=== PATIENT | female | born 1995 | race Caucasian/White ===

== ENCOUNTER → 2017-11-24 | Outpatient (CLI) | payer OTHER ==
[~2017-11-24] MED LIST: GADOBUTROL 15 MMOL/15 ML (GADAVIST) VIAL IV ONE
--- NOTE | 2017-11-24 11:33 | Diagnostic Imaging Report ---
CLINICAL INDICATION: Patient with family history of polycystic kidney disease. Exam: Ultrasound of both kidneys. Comparison: None. Findings: There are multiple bilateral renal cysts seen. Largest in the right kidney is seen in the midportion and measures 2.4 cm x 1.6 cm x 2.2 cm and the second largest is seen in the upper pole and measures 2.0 cm x 1.7 cm x 2.3 cm. The largest in the left kidney is seen in the inferior pole and measures 2.1 cm x 1.8 cm x 1.9 cm and the second largest measures 1.8 cm x 1.4 cm x 1.5 cm medially. There are multiple other small cysts seen. There is no hydronephrosis. Both kidneys have normal cortical thickness and echogenicity. The right and left kidneys measure 12.1 cm and 13 cm in their craniocaudal dimensions respectively. There is a 4.7 cm cystic structure in the right adnexa region which shows no major Doppler flow. Visualized portion of the bladder is unremarkable. Bilateral ureteral jets are seen. Impression: 1: There is no evidence of acute renal process. 2: Multiple bilateral renal cysts, likely related to patient's family history of polycystic kidney disease. 3: Incidental note of a 4.7 cm cystic structure in right adnexa region. Pelvic ultrasound is suggested for further evaluation, since it is not well evaluated on this exam. Dictated by: Dictated on workstation # [id number]
--- NOTE | 2017-11-24 12:04 | Diagnostic Imaging Report ---
EXAM: MRI of the brain and orbits with and without contrast. INDICATION: Double vision. Multiplanar images utilizing both T1 and T2-weighted sequences were obtained. Additional images following intravenous administration if intravenous contrast were also performed. In addition, magnified images of the orbits in the axial, coronal and sagittal planes were also performed after administration of intravenous contrast. COMPARISON: There are no prior studies available for comparison. FINDINGS: The axial images of the orbits suggest that the right globe may be slightly proptotic compared to the left. The globe itself is generally unremarkable. The optic nerves and extraocular muscles appear symmetrical. There is no abnormal enhancement of the orbital contents on the postcontrast series. There is no sign of a retrobulbar mass and the optic chiasm is undisturbed. The sella is not enlarged and the expected carotid flow voids are evident bilaterally. There are retention cysts nearly completely opacifying the sphenoid sinus on the right. There is also a 1.8 x 2.3 CM retention cyst in the roof of the right maxillary antrum and a similar appearing but much smaller 0.9 x 1.2 CM cyst in the roof the left maxillary antrum. An even smaller 0.3 x 1.0 CM retention cyst is seen in the floor of the left maxillary antrum. The ethmoid sinuses and the frontal sinuses are generally clear. The seventh and eighth nerve complexes are unremarkable. There is no intracranial mass, shift of midline or hemorrhage identified. There is no abnormal signal arising from the brain on the diffusion series to indicate an area of acute ischemia either. Furthermore, there is no abnormal enhancement postcontrast series to suggest a neoplastic or infectious process. There does appear to be a small irregular linear area of enhancement in the left frontal lobe. I suspect that this is related to a venous anomaly. There is no abnormal signal arising from the brain on the FLAIR series to suggest demyelinating disease. The ventricles are not abnormally dilated. IMPRESSION: 1. There is no evidence for an acute intracranial abnormality. 2. The globes appear symmetrical and there is no abnormal signal arising from the optic nerves or extraocular muscles to suggest an acute abnormality. The right globe may be slightly proptotic compared to the left. 2. There is no abnormal enhancement of the brain to suggest a neoplastic or an infectious process. There does appear to be an anomalous venous structure in the left frontal lobe however. This may represent a venous angioma. 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
== END ==
LOC: RAD 08:23
PROVIDERS: ATTEND Physician Assistant
DX: J34.89 Other specified disorders of nose and nasal sinuses (principal); H47.10 Unspecified papilledema; H53.2 Diplopia; N28.1 Cyst of kidney, acquired; Z82.71 Family history of polycystic kidney
CPT/HCPCS: 70553; 76770